=== PATIENT | female | born 1995 | race Caucasian/White ===

== ENCOUNTER 2016-08-23 19:58 | Inpatient (IN) | payer BC ==
--- NOTE | 2016-08-23 21:30 | ED ---
Psych HPI - General Chief Complaint: Psychiatric Symptoms Stated Complaint: Mental Health Time Seen by Provider: 08/23/16 20:18 Source: patient, RN notes reviewed Mode of arrival: ambulatory - History of Present Illness Initial Comments: Patient is a 21-year-old female presents emergency and for psych evaluation. Patient states a history depression. Patient states she takes medication daily for it. Patient states over the past few weeks been having increasing suicidal thoughts. Patient denies any significant plan. Patient states on and off she is driving she has thoughts on rolling her car off the road. Patient denies visual or auditory hallucinations. Patient denies homicidal ideations. Patient denies illicit drug use. Patient states she occasionally smokes marijuana. Patient denies alcohol use. Patient has a significant past medical history. Patient denies chest pain, shortness of breath, headache, dizziness nausea, vomiting, abdominal pain. - Related Data Home Medications Medication Instructions Recorded Confirmed Multivit-Min/Fe Fum/FA/Vit K 1 cap PO DAILY 08/23/16 08/23/16 [Women's Multivatimin] Norethindrone-E.estradiol-Iron 1 tab PO DAILY 08/23/16 08/23/16 [Blisovi Fe 1-20 Tablet] Venlafaxine HCl [Venlafaxine HCl 225 mg PO DAILY 08/23/16 08/23/16 ER] Allergies Allergy/AdvReac Type Severity Reaction Status Date / Time Penicillins Allergy Rash/Hives Verified 08/23/16 20:39 Review of Systems ROS Statement: Those systems with pertinent positive or pertinent negative responses have been documented in the HPI. ROS Other: All systems not noted in ROS Statement are negative. Past Medical History Past Medical History: No Reported History History of Any Multi-Drug Resistant Organisms: None Reported Past Surgical History: No Surgical Hx Reported Past Psychological History: Depression Smoking Status: Never smoker Past Alcohol Use History: None Reported Past Drug Use History: Marijuana General Exam - General Exam Comments Initial Comments: Sitting in exam room, no acute distress. Limitations: no limitations General appearance: alert, in no apparent distress Head exam: Present: atraumatic, normocephalic, normal inspection Eye exam: Present: normal appearance ENT exam: Present: normal exam Neck exam: Present: normal inspection Respiratory exam: Present: normal lung sounds bilaterally. Absent: respiratory distress Cardiovascular Exam: Present: regular rate, normal rhythm, normal heart sounds Extremities exam: Present: normal inspection Back exam: Present: normal inspection Neurological exam: Present: alert, oriented X3, CN II-XII intact, normal gait Psychiatric exam: Present: normal affect, normal mood Skin exam: Present: warm, dry, intact, normal color. Absent: rash Course Vital Signs 08/23/16 08/24/16 19:58 01:14 Temperature 97.3 F L 97.7 F Pulse Rate 98 88 Respiratory 16 18 Rate Blood Pressure 130/81 113/62 O2 Sat by Pulse 100 99 Oximetry Medical Decision Making - Medical Decision Making Patient is a 21-year-old female presents to the emergency room for psych evaluation. Patient is medically cleared to be evaluated by psych. Patient evaluated by psych meets admission criteria. - Lab Data Lab Results 08/23/16 08/23/16 Range/Units 20:30 20:30 Urine HCG, Qual Not Detected (Not Detectd) Urine Opiates Screen Not Detected (NotDetected) Ur Oxycodone Screen Not Detected (NotDetected) Urine Methadone Screen Not Detected (NotDetected) Ur Propoxyphene Screen Not Detected (NotDetected) Ur Barbiturates Screen Not Detected (NotDetected) U Tricyclic Antidepress Not Detected (NotDetected) Ur Phencyclidine Scrn Not Detected (NotDetected) Ur Amphetamines Screen Not Detected (NotDetected) U Methamphetamines Scrn Not Detected (NotDetected) U Benzodiazepines Scrn Not Detected (NotDetected) Urine Cocaine Screen Not Detected (NotDetected) U Marijuana (THC) Screen Detected H (NotDetected) Disposition Clinical Impression: Depression, Suicidal ideation Disposition: ADMITTED IP TO THIS [facility] Condition: Stable Decision Date: 08/24/16
[2016-08-24 01:15] VITALS: RESP 18
[2016-08-24] MEDS ORDERED: MAG HYDROX/AL HYDROX/SIMETH 30 ML CUP PO PRN (01:53)
[2016-08-24] MEDS ORDERED: MAGNESIUM HYDROXIDE 2,400 MG/10 ML CUP PO PRN (01:53)
[2016-08-24] MEDS ORDERED: ACETAMINOPHEN TAB 325 MG TAB PO PRN (01:53)
[2016-08-24] MEDS ORDERED: LORazepam 1 MG TAB PO PRN (02:04)
[2016-08-24] MEDS ORDERED: PNEUMOCOCCAL VACC-PNEUMOVAX 23 25 MCG/0.5 ML VIAL IM ONE ×2 (02:23→09:00)
[2016-08-24 04:32] VITALS: BMI 20.7
[2016-08-24 08:10] LABS: Basophils % (A) 1 %; CH 27.3; CHCM 32.4; Eosinophils % (A) 0 %; HCT 43.1 % (34.0-46.0); HDW 2.58; HGB 14.2 gm/dL (11.4-16.0); Luc # (Auto) 0.09; Luc % (Auto) 2; Lymphocytes % (A) 25 %; MCH 27.8 pg (25.0-35.0); MCHC 32.9 g/dL (31.0-37.0); MCV 84.4 fL (80.0-100.0); Mean Platelet Volume 6.5; Monocytes # (A) 0.3 k/uL (0-1.0); Monocytes % (A) 8 %; Neutrophils # (A) 2.7 k/uL (1.3-7.7); Neutrophils % (A) 65 %; RBC 5.11 m/uL (3.80-5.40); RDW 12.3 % (11.5-15.5); WBC 4.2 k/uL (3.8-10.6); WBC (Perox) 4.37
[2016-08-24] MEDS: MULTIVITAMINS, THERA 1 EACH TAB PO SCH (08:16)
[2016-08-24 08:38] LABS: ALT 27 U/L (9-52); AST 19 U/L (14-36); Alkaline Phosphatase 60 U/L (38-126); Anion Gap 10 mmol/L; Blood Urea Nitrogen 6 mg/dL (7-17); Calcium 9.4 mg/dL (8.4-10.2); Carbon Dioxide 26 mmol/L (22-30); Chloride 107 mmol/L (98-107); Glucose 92 mg/dL (74-99); Non-African American GFR(MDRD) >60 (>60 ml/min/1.73 sqM); Potassium 4.3 mmol/L (3.5-5.1); Sodium 143 mmol/L (137-145); Total Bilirubin 0.6 mg/dL (0.2-1.3); Total Protein 6.9 g/dL (6.3-8.2)
[2016-08-24] MEDS ORDERED: VENLAFAXINE HCL ER 75 MG CAP PO SCH (09:00)
[2016-08-24] MEDS ORDERED: INFLUENZA VACCINE (3YR+) 60 MCG/0.5 ML SYRINGE IM ONE (09:00)
[2016-08-24] MEDS: NORETHINDRONE E ESTRADIOL IRON PO SCH (09:50)
[2016-08-24] MEDS ORDERED: ALPRAZolam 0.25 MG TAB PO PRN (11:28)
--- NOTE | 2016-08-24 13:08 | HP ---
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 Patient is living with roommate. Patient presented to the mental health unit on voluntary basis for depression and suicidal ideation. HISTORY OF PRESENT ILLNESS: Patient presented to the ER with chief complaint of having depression and anxiety off and on for the last 5 or 6 years, but she stated that over the past week her depression has been increasing with recurrent suicidal thought. Patient stated that when she is driving her car she has thought of rolling her car off the road. Patient complaining of poor appetite, poor motivation, crying spell, no interest or pleasure to do things, feeling hopeless, helpless, but she denied any sleeping problem. She stated that sometimes she has been feeling tired or having no energy, feeling worthless and feeling failure at times. Today she denies any active suicidal ideation, but she stated that she has been struggling with the though that she would be better off . Patient describes increased anxiety characterized by restless feeling, irritability, feeling on edge and not able to concentrate or paying attention. She denies any psychotic feature. She denied any manic or hypomanic feature. Patient talked about ongoing stressor especially work stress. She stated that since October of 2015 she has more workload as they did cut down the staff in her department from 9 staff to just 6. Patient kept saying, "It's very hostile environment". 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 Patient said, "She has been very angry and is trying to get between me and my team and coworker". Regarding her past psychiatric history, there is no previous inpatient treatment. There is history of self cutting from age 16 until age 18. After this, she has been having a lot of the tattoos and piercings. She stated that she has at least 13 piercings in her body. PSYCHOTROPIC MEDICATION: Patient was on Celexa one year ago and she was on it 6 months, but she stated that it was not effective and her primary care physician did start her on Effexor 4 months ago. There is increase of the dose 2 months ago to 225 mg daily. According to her "it's effective". Currently the patient has been picking on her skin and she has scabs on both legs and face and breast. SUBSTANCE ABUSE HISTORY: Marijuana. She has been smoking marijuana on daily basis since age 16. She denied any other illegal drug use. MEDICAL HISTORY: Her primary care physician is Dr. Givens. There is no acute medical problems; patient has scabs on both legs and face. FAMILY HISTORY OF PSYCHIATRIC ILLNESS: Patient's brother attempted suicide and he was hospitalized on [facility] last year., diagnosed with depression, bipolar and anxiety. Her father is alcoholic There is no family member committed suicide. Her home medications: 1. Effexor 225 mg daily. 2. control. 3. Multivitamin. Allergy to PENICILLIN. Vital signs at the time of the admission, temperature 97.7, pulse 88, respirations 18, blood pressure 113/62. SOCIAL HISTORY: Patient is the oldest of 2. She has one brother who is 18 months younger than her. Patient's mother is public health social worker at [employer]. Patient graduated from high school and she has an associate degree in [employer] and she has been working in the same area for the last 2 years. Patient has fiance for 6 years. Currently he is in [employer] stationed in [place] for the last 18 months. Patient stated that she is not close to her parents, but she is very close to her roommate with whom she is living for the last 3 months. LEGAL HISTORY: She denied any current history. MENTAL STATUS EXAMINATION: Patient is a female who was wearing hospital gown, long blond hair, has piercing in her nose, multiple scabs on her face and both legs. Eye contact is appropriate. Speech is spontaneous, non-pressured and coherent. Thought process is linear. There is some psychomotor agitation as she was very restless and fidgety throughout the interview especially shaking her leg constantly. Patient was tearful during my interview especially when she was discussing the stress related to her work. Her affect was dysphoric with a mixture of anxiety and depression. She describes suicidal ideation and wish, but she denied any homicidal ideation. She expressed depressive symptoms including hopeless, helpless, and feeling failure and worthless. She denied any obsession. She denied any idea of reference or paranoia. Her thinking appeared concrete, but her associations were coherent and logical. She denied any hallucination. COGNITIVE FUNCTION: She was alert, oriented to place, date and person. She was able to recall 3 objects after delay of several minutes. INTELLECTUAL FUNCTION: Average. STRENGTHS: Patient has her own income. She has been able to maintain this same job for the last couple of years, able to ask for help. WEAKNESS: Relationship conflict and chronic history of depression and self-mutilation behavior. IMPRESSION: The patient presented with history of depression and suicidal ideation. She has genetic component of depression as her brother was here for depression and suicidal attempt. She has a history of self-mutilation behavior since age 16. Patient has problem regarding using marijuana on a daily basis. She is preoccupied with stress in her work environment and she appears to be suffering of recurrence of depressive disorder. Patient will benefit from inpatient treatment. DIAGNOSES: 1. Major depression disorder, recurrent, moderate to severe, without psychotic feature. 2. Anxiety disorder, not otherwise specified. 3. Marijuana use disorder. 4. Psychosocial dysfunction due to her depression and anxiety. PLAN: Patient has been admitted to the mental health unit on voluntary basis. I did review her symptoms and medication option. I will increase her Effexor to 300 mg daily and I will add Xanax p.r.n. for her anxiety. I might consider adding mood stabilizer if necessary and also to help her self-mutilation behavior. Will request a routine medical consultation. Will monitor the patient for safety and encourage her to participate in group therapy.
--- NOTE | 2016-08-24 15:01 | CONS ---
DATE OF CONSULTATION: REASON FOR CONSULTATION: Medical clearance. Patient is a 21-year-old female admitted with suicidal ideations and patient denied any medical problems at this point of time. Patient denied any fever, chills, cough, runny nose, chest pain, nausea, vomiting. Patient is not a smoker, does use marijuana occasionally. REVIEW OF SYSTEMS: CONSTITUTIONAL: No fever, no malaise, no fatigue. HEENT: No recent visual problems or hearing problems. Denied any sore throat. CARDIOVASCULAR: No chest pain, orthopnea, PND, no palpitations, no syncope. PULMONARY: No shortness of breath, no cough, no hemoptysis. GASTROINTESTINAL: No diarrhea, no nausea, no vomiting, no abdominal pain. Normoactive bowel sounds. NEUROLOGICAL: No headaches, no weakness, no numbness. HEMATOLOGICAL: Denies any bleeding or petechiae. GENITOURINARY: Denies any burning micturition, frequency, or urgency. MUSCULOSKELETAL/RHEUMATOLOGICAL: Denies any joint pain, swelling, or any muscle pain. ENDOCRINE: Denies any polyuria or polydipsia. The rest of the 14 point review of systems is negative. Home medications include: 1. Multivitamin. 2. Oral contraceptives. 3. Venlafaxine. ALLERGIES: Allergic to PENICILLIN. PAST MEDICAL HISTORY: None. PAST SURGICAL HISTORY: None. SOCIAL HISTORY: Denies smoking, alcohol abuse, occasional uses marijuana. FAMILY HISTORY: Denied any family history of hypertension, diabetes mellitus or coronary artery disease in the family. PHYSICAL EXAMINATION: VITAL SIGNS: Temperature 99.2, pulse of 88, respiratory rate of 18, blood pressure is 113/62, saturating at 98% on room air. GENERAL: The patient is alert and oriented x3, not in any acute distress. Well developed, well nourished. HEENT: Pupils are round and equally reacting to light. EOMI. No scleral icterus. No conjunctival pallor. Normocephalic, atraumatic. No pharyngeal erythema. No thyromegaly. CARDIOVASCULAR: S1 and S2 present. No murmurs, rubs, or gallops. PULMONARY: Chest is clear to auscultation, no wheezing or crackles. ABDOMEN: Soft, nontender, nondistended, normoactive bowel sounds. No palpable organomegaly. MUSCULOSKELETAL: No joint swelling or deformity. EXTREMITIES: No cyanosis, clubbing, or pedal edema. NEUROLOGICAL: Gross neurological examination did not reveal any focal deficits. SKIN: No rashes. LABORATORY DATA: CBC and CMP essentially within normal limits. Urine drug screen is positive for marijuana. ASSESSMENT AND PLAN: 1. Suicidal ideation and depression. Management as per primary service. 2. Marijuana use counseling was provided. No further recommendation from my perspective. Patient can continue her oral contraceptive. No further recommendations from a medical perspective. Will sign off at this point of time. Call us back if needed.
[2016-08-25 07:00] VITALS: BP 110/69; PULSE 114; TEMP 98.7
[2016-08-25] MEDS: NORETHINDRONE E ESTRADIOL IRON PO SCH (08:53)
[2016-08-25] MEDS: MULTIVITAMINS, THERA 1 EACH TAB PO SCH (08:53)
[2016-08-25] MEDS ORDERED: VENLAFAXINE HCL ER 150 MG CAP PO SCH (09:00)
--- NOTE | 2016-08-25 12:04 | DS ---
DATE OF ADMISSION: 08/24/2016 DATE OF DISCHARGE: 08/25/2016 CONSULTING PROVIDER: Jessica Molina CONSULT REASON: Medical management. ADMITTING DIAGNOSES: 1. Major depression, recurrent without psychotic feature. 2. Anxiety disorder, not otherwise specified. 3. Marijuana or cannabis use disorder. DISCHARGE DIAGNOSES: 1. Adjustment disorder with mixed anxiety and depression. 2. Cannabis use disorder. 3. Cluster B personality trait. 4. Multiple scabs in her face and both legs due to self-mutilation behavior. BRIEF SUMMARY OF ADMISSION NOTE: The patient was admitted to the mental health unit from the emergency room for depression and suicidal ideation. For complete history and physical exam, please refer to my dictation on August 24. HOSPITAL COURSE: Patient was admitted to the mental health unit on voluntary basis. She stated that she has been on Effexor for 4 months and she does feed that it is effective, so I increased the Effexor to 300 mg daily. 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 But since I saw her on August 24, she denied any suicidal ideation or wish. She is still struggling with self-mutilation behavior, but she stated that she is trying to distract herself by reading or by crocheting. Her lab work-up at the time of the admission was within normal limits. Urine drug screen is positive for cannabis. Patient was participating in all group therapy and activity therapy. Very social on the unit. I did discuss her treatment with the team and we did agree that the patient can be discharged to outpatient counseling. MENTAL STATUS EXAMINATION: At the time of the discharge, the patient is alert, good eye contact, very pleasant. Hygiene and grooming are excellent. Speech is spontaneous and coherent. Thought process is linear. She is reporting no homicidal or suicidal ideation, intent or plan. She denied feeling hopeless or helpless. 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 There is no evidence of hypomania or nicolas. There is no evidence of psychosis. Insight and judgment are good. Cognitive abilities have remained stable across the hospitalization. PLAN: Patient will be discharged from the mental health unit today to return home after family meeting. Patient will continue on her Effexor 300 mg daily. Patient will be referred to outpatient counseling to improve her coping skills and her assertive technique. The patient is able to complete her activities of daily living and she denied any hopeless or helpless feeling. She denied any suicidal or homicide ideation. Does not have any access to firearms. Patient was instructed to return to the emergency room if any acute safety concern. Patient was given letter to return back to walk on August 30. Patient's condition at the time of the discharge, stable.
== END 2016-08-25 14:35 | disposition home or self-care (01) | DRG 885 ==
LOC: EC 19:58 → 3MHU 08-24 01:02
PROVIDERS: ADMIT Psychiatry & Neurology Psychiatry; ATTEND Psychiatry & Neurology Psychiatry
PROC: 3E0234Z Introduction of Serum, Toxoid and Vaccine into Muscle, Percutaneous Approach (ICD-10-PCS; principal; 2016-08-24)
PROC: 3E0234Z Introduction of Serum, Toxoid and Vaccine into Muscle, Percutaneous Approach (ICD-10-PCS; 2016-08-24)
DX: F33.2 Major depressive disorder, recurrent severe without psychotic features (principal); R45.851 Suicidal ideations; F43.23 Adjustment disorder with mixed anxiety and depressed mood; Z88.0 Allergy status to penicillin; F41.9 Anxiety disorder, unspecified; F12.99 Cannabis use, unspecified with unspecified cannabis-induced disorder; Z81.8 Family history of other mental and behavioral disorders; Z23 Encounter for immunization; Z71.51 Drug abuse counseling and surveillance of drug abuser; Z81.1 Family history of alcohol abuse and dependence; Z91.5 Personal history of self-harm; Z79.3 Long term (current) use of hormonal contraceptives; Z79.899 Other long term (current) drug therapy; Z56.3 Stressful work schedule
CPT/HCPCS: 80053; 80306; 81025; 82075; 84443; 85025; 90686; 90732; 99285

== ENCOUNTER → 2017-01-26 | Outpatient (CLI) | payer BC ==
[2017-01-26 14:31] LABS: Hepatitis B Surface Ag Index 0.09
[2017-01-26 14:36] LABS: Hepatitis B Core IgM Index 0.05
[2017-01-26 14:48] LABS: Hepatitis C Virus IgG Ab Negative (Negative); Hepatitis C Virus IgG Index 0.03
[2017-01-26 19:19] LABS: Treponemal Ab Non-Reactive (Non-Reactive)
== END ==
LOC: LABWHC1 12:50
PROVIDERS: ATTEND Obstetrics & Gynecology
DX: Z11.3 Encounter for screening for infections with a predominantly sexual mode of transmission (principal)
CPT/HCPCS: 36415; 80074; 86780; 87390

== ENCOUNTER → 2022-11-04 | Outpatient (CLI) | payer OTHER ==
--- NOTE | 2022-11-04 12:55 | XR ---
EXAMINATION TYPE: XR thoracic spine 2V DATE OF EXAM: 11/04/2022 COMPARISON: NONE HISTORY: Pain TECHNIQUE: 3 views submitted FINDINGS: Alignment is anatomic. There is no compression deformities. Vertebral body height and disc interspa alethea are maintained. Hypertrophic degenerative change lower cervical spine. IMPRESSION: 1. No acute abnormality.
== END | disposition home or self-care (01) ==
LOC: RADXRMAIN 10:59
PROVIDERS: ATTEND Nurse Practitioner Family
DX: M54.6 Pain in thoracic spine (principal)
CPT/HCPCS: 72070